=== PATIENT | female | born 1990 | race Hispanic/Latino ===

== ENCOUNTER 2017-07-29 16:33 | Emergency (ER) | payer SELFPAY ==
--- NOTE | 2017-07-29 17:14 | RAD ---
RIGHT ANKLE TWO VIEWS: 07/29/17 HISTORY: Ankle pain. There is no signs of fracture or dislocation or joint effusion. IMPRESSION: Negative left ankle. POS: [facility]
== END 2017-07-29 18:15 | disposition left against medical advice (07) ==
LOC: MADERS 16:33
DX: Z53.21 Procedure and treatment not carried out due to patient leaving prior to being seen by health care provider (principal)